=== PATIENT | female | born 1965 | race Two or more races ===

== ENCOUNTER 2024-09-22 17:33 | Inpatient (IN) | payer OTHER ==
[~2024-09-22] VITALS: Ht 175.3 cm; Wt 95.3 kg
[2024-09-22] MEDS ORDERED: SODIUM CHLORIDE 0.45 % 1,000 ML IV SCH (18:00)
[2024-09-22] MEDS ORDERED: PIPERACILLIN/TAZOBACTAM SODIUM 3.375 GM in 0.9 % SODIUM CHLORIDE 100 ML IV SCH (18:09)
[2024-09-22 18:10] VITALS: BP 108/83
[2024-09-22] MEDS ORDERED: LISINOPRIL 40 MG TABLET PO SCH (18:10)
[2024-09-22] MEDS ORDERED: METOPROLOL SUCCINATE 100 MG TAB.SR.24H PO SCH (18:10)
[2024-09-22] MEDS ORDERED: NIFEDIPINE 30 MG TAB.SA.OSM PO SCH (18:11)
[2024-09-22] MEDS ORDERED: ISOSORBIDE MONONITRATE 30 MG TABLET PO SCH (18:13)
[2024-09-22] MEDS ORDERED: KETOROLAC TROMETHAMINE 30 MG VIAL IV PRN (18:15)
[2024-09-22 19:00] VITALS: BP 108/83; O2SAT 98
[2024-09-22 19:27] LABS: BASO % 0.3 % (0.1-1.2); EOS # 0.26 (0.04-0.54); EOS % 1.6 % (0.7-7.0); LYMPH # 3.63 (1.18-3.74); LYMPH % 23.0 % (19.3-53.1); MEAN PLATELET VOLUME 9.80 fl (9.4-12.4); MONO # 0.75 (0.24-0.82); MONO % 4.7 % (4.7-12.5); NEUT # 11.06 (1.56-6.13); NEUT % 70.1 % (34.0-71.1); RED CELL DISTRIBUTION WIDTH 14.7 % (11.6-14.4)
[2024-09-22 19:29] LABS: ERYTHROCYTE SEDIMENTATION RATE 39 mm/hr (0-30)
[2024-09-22 19:51] LABS: INR 0.94
[2024-09-22 19:56] LABS: ALT/SGPT 28.0 U/L (12-78); AST/SGOT 16.0 U/L (15-37); BILIRUBIN TOTAL 0.28 mg/dL (0.3-1.2); BUN CREA RATIO 17.0 (7.0-25.0); CREATININE SERUM 1.7 mg/dL (0.55-1.02); GFR 30.76; GLOBULINA 3.3 G/DL (2.4-3.5); GLUCOSE FASTING 101.0 mg/dL (65-100); OSMOLALITY SERUM 285.0 MOSM/KG (275-295)
[2024-09-22 20:26] LABS: URINE APPEARANCE Clear; URINE BILIRRUBIN Negative (NEGATIVE); URINE BLOOD Negative; URINE COLOR Yellow; URINE GLUCOSE Negative (NEGATIVE); URINE KETONE Negative (NEGATIVE); URINE LEUKOCYTE Negative; URINE NITRATE Negative; URINE PROTEIN Negative (NEGATIVE); URINE UROBILINOGEN 0.2 E.U./dl
[2024-09-22 20:27] LABS: URINE BACTERIA 284.2 uL (0.0-1933); URINE EPITHELIAL CELLS 8.8 uL (0.0-38.8); URINE RBC 13.3 uL (0.0-20.8); URINE WBC 2.1 uL (0.0-23.2)
[2024-09-22 20:33] LABS: URINE CAST 0.00 uL (0.0-1.40)
[2024-09-22] MEDS ORDERED: Pregabalin 50 MG,Pregabalin 25 MG PO SCH (21:00)
[2024-09-22] MEDS ORDERED: ATORVASTATIN CALCIUM 20 MG TABLET PO SCH (21:00)
[2024-09-22] MEDS ORDERED: FAMOTIDINE/PF 20 MG in 0.9 % SODIUM CHLORIDE 8 ML IV PUSH SCH (21:00)
[2024-09-23 01:25] VITALS: BP 113/74; O2SAT 95
[2024-09-23] MEDS ORDERED: DIATRIZOATE MEGLUMINE, SODIUM 30 ML BOTTLE PO NR (07:00)
[2024-09-23 09:29] VITALS: BP 119/80
[2024-09-23] MEDS ORDERED: MAGNESIUM HYDROXIDE 30 ML BLIST.PACK PO NR (13:30)
[2024-09-23] MEDS ORDERED: MINERAL OIL 30 ML BLIST.PACK PO NR (13:30)
[2024-09-23] MEDS ORDERED: LACTULOSE 20 G/30 ML BLIST.PACK PO NR (13:30)
[2024-09-23 13:51] LABS: ALT/SGPT 24.0 U/L (12-78); AST/SGOT 13.0 U/L (15-37); BILIRUBIN TOTAL 0.48 mg/dL (0.3-1.2); BUN CREA RATIO 17.0 (7.0-25.0); CREATININE SERUM 1.27 mg/dL (0.55-1.02); GFR 43.07; GLOBULINA 3.1 G/DL (2.4-3.5); GLUCOSE FASTING 83.0 mg/dL (65-100); OSMOLALITY SERUM 286.0 MOSM/KG (275-295)
[2024-09-23 18:26] VITALS: BP 100/55; O2SAT 100
[2024-09-23] MEDS ORDERED: CLOTRIMAZOLE 10 MG TROCHE MM SCH (20:30)
[2024-09-24 02:32] VITALS: BP 100/68; O2SAT 96
[2024-09-24 07:00] VITALS: BP 129/81; O2SAT 93
[2024-09-24 07:25] LABS: BASO % 0.4 % (0.1-1.2); EOS # 0.36 (0.04-0.54); EOS % 2.9 % (0.7-7.0); LYMPH # 4.27 (1.18-3.74); LYMPH % 34.6 % (19.3-53.1); MEAN PLATELET VOLUME 10.40 fl (9.4-12.4); MONO # 0.82 (0.24-0.82); MONO % 6.6 % (4.7-12.5); NEUT # 6.82 (1.56-6.13); NEUT % 55.3 % (34.0-71.1); RED CELL DISTRIBUTION WIDTH 14.6 % (11.6-14.4)
[2024-09-24 07:58] LABS: ALT/SGPT 22.0 U/L (12-78); AST/SGOT 18.0 U/L (15-37); BILIRUBIN TOTAL 0.52 mg/dL (0.3-1.2); BUN CREA RATIO 15.0 (7.0-25.0); CREATININE SERUM 1.22 mg/dL (0.55-1.02); GFR 45.11; GLOBULINA 3.2 G/DL (2.4-3.5); GLUCOSE FASTING 68.0 mg/dL (65-100); OSMOLALITY SERUM 289.0 MOSM/KG (275-295)
[2024-09-24 17:11] VITALS: BP 120/73
[2024-09-25 02:26] VITALS: BP 139/79; O2SAT 96
[2024-09-25 11:30] VITALS: BP 157/86
[2024-09-25 17:12] VITALS: BP 110/70; O2SAT 100
== END 2024-09-25 17:53 | disposition home or self-care (01) | DRG 684 ==
LOC: MEDJ 17:33 → MEDI 17:33
PROVIDERS: Internal Medicine Infectious Disease; ADMIT Internal Medicine; ATTEND Internal Medicine
PROC: BW21YZZ Computerized Tomography (CT Scan) of Abdomen and Pelvis using Other Contrast (ICD-10-PCS; principal; 2024-09-23)
PROC: BW40ZZZ Ultrasonography of Abdomen (ICD-10-PCS; 2024-09-23)
PROC: CF1C1ZZ Planar Nuclear Medicine Imaging of Hepatobiliary System, All using Technetium 99m (Tc-99m) (ICD-10-PCS; 2024-09-23)
PROC: BF37ZZZ Magnetic Resonance Imaging (MRI) of Pancreas (ICD-10-PCS; 2024-09-24)
DX: N17.9 Acute kidney failure, unspecified (principal); M79.7 Fibromyalgia; N28.1 Cyst of kidney, acquired; K40.90 Unilateral inguinal hernia, without obstruction or gangrene, not specified as recurrent; E86.0 Dehydration; M35.00 Sjogren syndrome, unspecified; E78.5 Hyperlipidemia, unspecified; I12.9 Hypertensive chronic kidney disease with stage 1 through stage 4 chronic kidney disease, or unspecified chronic kidney disease; N18.9 Chronic kidney disease, unspecified